=== PATIENT | female | born 1985 ===

== ENCOUNTER 2019-10-04 13:31 | Emergency (ER) | payer OTHER ==
[~2019-10-04] VITALS: Ht 154.9 cm; Wt 54.5 kg
[2019-10-04 13:41] VITALS: TEMP 97.8
[2019-10-04 16:32] VITALS: BP 102/68; PULSE 62
== END 2019-10-04 16:32 | disposition home or self-care (01) ==
LOC: COL.ER 13:31
DX: J06.9 Acute upper respiratory infection, unspecified (principal); F17.210 Nicotine dependence, cigarettes, uncomplicated